=== PATIENT | female | born 1995 | race Caucasian/White ===

== ENCOUNTER 2017-04-06 16:17 | Emergency (ER) | payer BC, OTHER ==
[~2017-04-06] VITALS: Ht 165.1 cm; Wt 91.0 kg
[2017-04-06 16:19] VITALS: Ht 165.1 cm; Wt 91.0 kg
[2017-04-06] MEDS ORDERED: ACET500C5 PO (16:45)
[2017-04-06] MEDS ORDERED: OFLO5DRO46 RIGHT EYE (16:45)
--- NOTE | 2017-04-06 17:30 | ERD ---
ER Documentation Chief Complaint Date/Time DATE: 04/06/17 TIME: 17:25 Chief Complaint Complains of pink eye (right) since Sunday HPI 21-year-old female patient with no significant past medical history presents to the ED complaining of right-sided pinkeye that started 6 days ago. States that she had mucus on the right side of her eye and had difficulty opening her right eye in the morning. Denies others having the same symptoms. States that she also has a sore throat. Denies any fever, chills, vomiting, diarrhea, abdominal pain, chest pain, shortness of breath, diplopia, blurred vision, eye pain, headache, weakness, photophobia. No dysphagia, odynophagia. ROS All systems reviewed and are negative except as per history of present illness. Medications Home Meds Active Scripts Acetaminophen* (Tylophen*) 500 Mg Capsule, 1 CAP PO Q6H Y for PAIN AND OR ELEVATED TEMP, #20 CAP Prov:MARYBETH RANDOLPH PA-C 04/06/17 Ofloxacin* (Ocuflox*) 0.3%-5 Ml Ophth Drops, 1 DROP RIGHT EYE QID for 7 Days, BOTTLE Prov:MARYBETH RANDOLPH PA-C 04/06/17 Reported Medications [None] No Conflict Check 01/27/11 Allergies Allergies: Coded Allergies: No Known Allergies (Verified Allergy, Mild, 04/06/17) PMhx/Soc Medical and Surgical Hx: pt denies Medical Hx, pt denies Surgical Hx History of Surgery: No Anesthesia Reaction: No Hx Neurological Disorder: No Hx Respiratory Disorders: No Hx Cardiac Disorders: No Hx Psychiatric Problems: No Hx Miscellaneous Medical Probl: No Hx Alcohol Use: No Hx Substance Use: No Hx Tobacco Use: No Smoking Status: Never smoker Physical Exam Vitals Vital Signs Date Time Temp Pulse Resp B/P Pulse Ox O2 Delivery O2 Flow Rate FiO2 04/06/17 16:19 98.8 94 20 21/67 97 Physical Exam Const: [id number], well-nourished. In no acute distress. Head: Atraumatic, normocephalic Eyes: Left conjunctiva without injection. Right injected conjunctivae. No purulent discharge. PERRLA. EOMI ENT: Normal external ear. Ear canal without erythema. Tympanic membrane pearly lewis without effusion or bulging. Nasal canal clear with normal turbinates. Moist oropharynx without tonsillar exudates. Erythematous pharynx. Uvula midline. No drooling. No trismus. Neck: No cervical midline tenderness. Full range of motion. No meningismus. No cervical lymphadenopathy. No JVD. Resp: Clear to auscultation bilaterally. No wheezing, rhonchi, rales, or crackles. No accessory muscle use. No retractions. Cardio: Regular rate and rhythm. No murmurs, rubs or gallops. Skin: Normal skin turgor. No petechiae or rashes Ext: No cyanosis, or edema. Distal pulses intact bilaterally. Neur: Awake and alert. Normal gait. Normal coordination. Cranial Nerves II- VII intact. Muscle strength 5/5. Sensation intact. Psych: Normal Mood and Affect Procedures/MDM 21-year-old female patient with no significant past medical history presents to the ED complaining of right pinkeye and sore throat that started 6 days ago. Patient is afebrile and nontoxic-appearing. Patient has normal vital signs. Patient's ocular symptoms have stabilized while they have been evaluated in the department and are appropriate for outpatient work up. Low suspicion for ruptured globe, retinal detachment, periorbital cellulitis, acute angle closure glaucoma, deep space infection, iritis, traumatic hyphema, subconjunctival hemorrhage, corneal abrasion, corneal ulcer, pterygium, hypopyon, blepharitis, hordeolum, chalazion, or other emergent conditions. Patient's physical exam is consistent with viral pharyngitis. Differentials include tonsillitis, strep pharyngitis, mononucleosis however there is low suspicion. Instructed patient that if symptoms do not improve with pain medications to return to the ED immediately for further evaluation and treatment. Patient's physical exam include lungs which were clear to auscultation and a normal pulse oximetry. Bilateral ears pearly sanabria. No tenderness to palpation of tragus or mastoid. Low suspicion for mastoiditis, otitis externa, otitis media. Patient is speaking in full sentences. There is a low suspicion for pneumonia, epiglottitis, croup, sinusitis, peritonsillar abscess, Devin's angina, retropharyngeal abscess, meningitis, sepsis, acute abdomen or other emergent conditions. Discharge medications: Tylenol, Ocuflox Follow up with primary care physician in 1-2 days. Instructed patient to return to the ED sooner for any worsening symptoms. Patient's questions were answered. Patient understood and agreed with discharge plan. Patient discharged stable. Departure Diagnosis: Primary Impression: Conjunctivitis Additional Impression: Sore throat Condition: Stable Patient Instructions: When You Have a Sore Throat, Self-Care for Sore Throats, Conjunctivitis, Non-Specific Referrals: [facility] YOU HAVE RECEIVED A MEDICAL SCREENING EXAM AND THE RESULTS INDICATE THAT YOU DO NOT HAVE A CONDITION THAT REQUIRES URGENT TREATMENT IN THE EMERGENCY DEPARTMENT. FURTHER EVALUATION AND TREATMENT OF YOUR CONDITION CAN WAIT UNTIL YOU ARE SEEN IN YOUR DOCTORS OFFICE WITHIN THE NEXT 1-2 DAYS. IT IS YOUR RESPONSIBILITY TO MAKE AN APPOINTMENT FOR FOLOW-UP CARE. IF YOU HAVE A PRIMARY DOCTOR --you should call your primary doctor and schedule an appointment IF YOU DO NOT HAVE A PRIMARY DOCTOR YOU CAN CALL OUR PHYSICIAN REFERRAL HOTLINE AT IF YOU CAN NOT AFFORD TO SEE A PHYSICIAN YOU CAN CHOSE FROM THE FOLLOWING [facility] [address] [facility] [address] [facility] [facility] [address] [facility] [address] [facility] [address] [facility] [facility]. [address] [facility]. [facility] YOU HAVE RECEIVED A MEDICAL SCREENING EXAM AND THE RESULTS INDICATE THAT YOU DO NOT HAVE A CONDITION THAT REQUIRES URGENT TREATMENT IN THE EMERGENCY DEPARTMENT. FURTHER EVALUATION AND TREATMENT OF YOUR CONDITION CAN WAIT UNTIL YOU ARE SEEN IN YOUR DOCTORS OFFICE WITHIN THE NEXT 1-2 DAYS. IT IS YOUR RESPONSIBILITY TO MAKE AN APPOINTMENT FOR FOLOW-UP CARE. IF YOU HAVE A PRIMARY DOCTOR --you should call your primary doctor and schedule and appointment IF YOU DO NOT HAVE A PRIMARY DOCTOR YOU CAN CALL OUR PHYSICIAN REFERRAL HOTLINE AT . IF YOU CAN NOT AFFORD TO SEE A PHYSICIAN YOU CAN CHOSE FROM THE FOLLOWING [facility]: [facility] [address] [place] [address] [facility] [address] [place] [address] [facility] [address] [place] [address] [facility] Additional Instructions: Call your primary care doctor for an appointment during the next 2-3 days.See the doctor sooner or return here if your condition worsens before your appointment time. MARYBETH RANDOLPH PA-C Apr 06, 2017 17:30
== END 2017-04-06 17:09 | disposition home or self-care (01) ==
LOC: FTE 16:17
DX: H10.9 Unspecified conjunctivitis (principal); J02.9 Acute pharyngitis, unspecified
CPT/HCPCS: 99283

== ENCOUNTER 2017-06-11 11:50 | Emergency (ER) | payer BC, OTHER ==
[~2017-06-11] VITALS: Ht 162.6 cm; Wt 91.0 kg
[~2017-06-11 11:50] MED LIST: ACET500C5 PO; OFLO5DRO46 RIGHT EYE
[2017-06-11 11:55] VITALS: Ht 162.6 cm; Wt 91.0 kg
--- NOTE | 2017-06-11 14:34 | ERA ---
ER Documentation Chief Complaint Date/Time DATE: 06/11/17 TIME: 14:32 Chief Complaint RT FOOT PAIN S/P INJURY YESTERDAY HPI 21-year-old otherwise healthy female presents with a chief complaint of right foot pain. Patient 6-9 years ago had a fracture of the fourth/fifth metatarsals. States that the pain is in the same area. Area usually cracks when getting up. It cracks today but was followed by severe pain. Is having difficulty ambulating. Has not taken any medications to relieve the symptoms. Describes the pain is dull. Denies loss of motion, loss of sensation or other rapidly progressive neurological deficits. Patient has no other complaints and describes no other associated manifestations. Nursing notes have been reviewed and are consistent with history given. ROS All systems reviewed and are negative except as per history of present illness. Medications Home Meds Active Scripts Ibuprofen* (Motrin*) 400 Mg Tab, 400 MG PO Q6, #30 TAB Prov:ADRIANNA NGUYEN PA-C 06/11/17 Allergies Allergies: Coded Allergies: No Known Allergy (Unverified , 06/11/17) PMhx/Soc Medical and Surgical Hx: pt denies Medical Hx, pt denies Surgical Hx Physical Exam Vitals Vital Signs Date Time Temp Pulse Resp B/P Pulse Ox O2 Delivery O2 Flow Rate FiO2 06/11/17 11:55 98.5 83 16 129/71 98 Physical Exam Const: Overweight, but otherwise well-appearing, no acute distress 21-year-old female Head: Atraumatic Eyes: Normal Conjunctiva ENT: Normal External Ears, Nose and Mouth. Neck: Full range of motion..~ No meningismus. Resp: Clear to auscultation bilaterally Cardio: Regular rate and rhythm, no murmurs Abd: Soft, non tender, non distended. Normal bowel sounds Skin: No petechiae or rashes Back: No midline or flank tenderness Ext: Tender fourth/fifth metatarsal and phalanges of the right foot. Neurovascularly intact bilaterally. Cap refill less than 2 seconds. Difficulty ambulating secondary to pain. Neur: Awake and alert Psych: Normal Mood and Affect Procedures/MDM 21-year-old female presenting with a chief complaints of right foot pain over the fourth and fifth metatarsals as described in history and physical examination. Patient was neurovascularly intact. X-ray was obtained, read by the radiologist given the following impression: Unremarkable. At this time of little suspicion for bony pathology or neurovascular compromise , or infection. Low suspicion for gout or pseudogout or other related pathologies. Patient's most likely diagnosis is foot pain due to unknown etiology. Patient's vitals are stable and current condition is appropriate for discharge. Patient will be discharged with discharge instructions return precautions. Departure Diagnosis: Primary Impression: Foot pain Qualified Code: M79.671 - Right foot pain Condition: Stable Additional Instructions: Follow up with your PCP within the next 1-3 days for a more thorough evaluation and a possible referral to a specialist. Return the the emergency department immediately if symptoms worsen or change. If you have any questions regarding medications, ask your pharmacist or us before you leave. If any adverse reactions occur while taking your medications, discontinue the treatment and return to the emergency department immediately. Take your medications as directed, and complete the entire course of treatment. ADRIANNA NGUYEN PA-C Jun 11, 2017 14:34
--- NOTE | 2017-06-11 15:06 | RADRPT ---
PROCEDURE: XR Foot. CLINICAL INDICATION: Right foot pain TECHNIQUE: AP, lateral, and oblique views of the right foot are available for review. COMPARISON: None available FINDINGS: The osseous structures, articular spaces, and surrounding soft tissues are intact. No acute fractur e or dislocation is seen. No radiopaque foreign body is identified. Bony mineralization is normal. IMPRESSION: 1. Unremarkable right foot x-ray series. RPTAT: EE .Gregg Wolfe MD, MD Date Time Electronically viewed and signed by .Gregg Wolfe MD, on 06/11/2017 15:06 .L/
[2017-06-11] MEDS ORDERED: IBUP400T22 PO (15:31)
[2017-06-11 15:43] VITALS: BP 130/71; PULSE 78; RESP 17; TEMP 98.7
== END 2017-06-11 15:47 | disposition home or self-care (01) ==
LOC: MERGE 11:50 → FTE 11:50
DX: M79.671 Pain in right foot (principal)
CPT/HCPCS: 73630

== ENCOUNTER 2017-10-09 18:43 | Emergency (ER) | END 2017-10-09 20:57 | disposition home or self-care (01) ==